=== PATIENT | male | born 1995 | race Caucasian/White ===

== ENCOUNTER → 2017-02-26 | Outpatient (CLI) | payer OTHER ==
--- NOTE | 2017-02-26 09:14 | KCIC ---
Chest, two views Indication: Wheezing and bronchitis. Time of exam 9:00 a.m. No prior studies are available for comparison. The heart size is normal. The lungs are clear. The pulmonary vascularity is unremarkable. No infiltrate or effusion is seen. There is no pneumothorax. Impression: No acute cardiopulmonary process is detected. Electronically signed by: Dima Watson MD (February 26, 2017 09:12:17)
== END | disposition home or self-care (01) ==
LOC: KCIC 08:52
PROVIDERS: ATTEND Nurse Practitioner Family
DX: J40 Bronchitis, not specified as acute or chronic (principal)
CPT/HCPCS: 71020